=== PATIENT | male | born 1945 | race Caucasian/White ===

== ENCOUNTER 2020-01-20 07:27 | Emergency (ER) | payer MEDICARE ==
[~2020-01-20] VITALS: Ht 175.3 cm; Wt 133.4 kg
[2020-01-20] MEDS ORDERED: PRAM1TAB7 PO (07:43)
[2020-01-20] MEDS ORDERED: LISI10TA4 PO (07:43)
[2020-01-20] MEDS ORDERED: PANT40TA3 PO (07:43)
[2020-01-20] MEDS ORDERED: VITAMIN D (07:43)
[2020-01-20] MEDS ORDERED: GABAPENTIN 1600 MG (07:43)
[2020-01-20] MEDS ORDERED: ATEN25TA PO (07:43)
[2020-01-20] MEDS ORDERED: MELO15TA28 PO (07:43)
[2020-01-20] MEDS ORDERED: XALA0.007 OD (07:43)
[2020-01-20] MEDS ORDERED: SIMV20TA22 PO (07:43)
[2020-01-20] MEDS ORDERED: METF500T13 PO (07:43)
[2020-01-20] MEDS ORDERED: FINA5TAB2 PO (07:43)
[2020-01-20] MEDS ORDERED: IBUP200C25 PO (07:53)
[2020-01-20] MEDS ORDERED: ACETAMINOPHEN 325 MG TAB PO ONE (08:00)
[2020-01-20] MEDS ORDERED: NS 1,000 ML IV ONE ×3 (08:00→12:30)
[2020-01-20] MEDS ORDERED: ceFAZolin SOD 2 GM in IV 1 EA IV ONE (08:15)
[2020-01-20 08:30] LABS: BASO % 0.5 % (0.0-1.0); EOS # 0.1 10^3/uL (0.0-0.5); EOS % 0.7 % (0.0-3.0); HEMATOCRIT 46.6 % (42.0-52.0); HEMOGLOBIN 15.1 g/dl (13.5-17.5); LYMPH # 0.5 10^3/uL (1.5-5.0); LYMPH % 6.4 % (24.0-44.0); MEAN CORPUSCULAR HEMOGLOBIN 29.7 pg (27.0-33.0); MEAN CORPUSCULAR HGB CONC 32.4 g/dl (32.0-36.5); MEAN CORPUSCULAR VOLUME 91.7 fl (80.0-96.0); MONO # 0.3 10^3/uL (0.0-0.8); NEUTROPHILS # 7.3 10^3/uL (1.5-8.5); NEUTROPHILS % 87.7 % (36.0-66.0); PLATELET COUNT, AUTOMATED 139 10^3/uL (150-450); RED BLOOD COUNT 5.08 10^6/uL (4.30-6.10); WHITE BLOOD COUNT 8.3 10^3/uL (4.0-10.0)
[2020-01-20] MEDS ORDERED: MORPHINE 2 MG/ML 1ML VIAL (J2270) IV ONE (08:30)
[2020-01-20 08:49] LABS: C REACTIVE PROTEIN QUANTITATIV 1.51 MG/DL (0.00-0.30); CALCIUM LEVEL 8.9 MG/DL (8.8-10.2); CREATININE FOR GFR 1.36 MG/DL (0.70-1.30); GLOMERULAR FILTRATION RATE 54.7 (>42); POTASSIUM SERUM 4.3 MEQ/L (3.5-5.1); URIC ACID 4.9 MG/DL (3.5-7.2)
[2020-01-20 09:05] LABS: ERYTHROCYTE SEDIMENTATION RATE 5 mm/hr (0-20)
--- NOTE | 2020-01-20 09:48 | REP ---
REASON: Great toe pain. HISTORY: Diabetes. PRIORS: None. There are degenerative changes seen throughout the foot. Plantar and retrocalcaneal heel spurs are present. There is no evidence of an acute fracture. IMPRESSION: No acute abnormality noted. Electronically Signed by Jaylan Hickman DO 01/20/2020 04:01 P
[2020-01-20] MEDS ORDERED: KEFL500C17 PO (09:54)
[2020-01-20 14:39] VITALS: BP 110/64
[2020-01-20] MEDS ORDERED: VITA-144 PO (21:10)
[2020-01-20] MEDS ORDERED: GABA-845 PO (21:10)
[2020-01-20] MEDS ORDERED: CEPH500C PO (21:10)
== END 2020-01-20 15:02 | disposition home or self-care (01) ==
LOC: M ED 07:27
DX: L03.116 Cellulitis of left lower limb (principal); R50.9 Fever, unspecified; G62.9 Polyneuropathy, unspecified; E78.00 Pure hypercholesterolemia, unspecified; I10 Essential (primary) hypertension; G47.30 Sleep apnea, unspecified; N40.1 Benign prostatic hyperplasia with lower urinary tract symptoms; Z87.442 Personal history of urinary calculi; E11.9 Type 2 diabetes mellitus without complications; M19.90 Unspecified osteoarthritis, unspecified site; G25.81 Restless legs syndrome; Z79.899 Other long term (current) drug therapy; Z88.2 Allergy status to sulfonamides

== ENCOUNTER 2020-01-20 19:02 | Inpatient (IN) | payer MEDICARE ==
[~2020-01-20] VITALS: Ht 175.3 cm; Wt 137.2 kg
[~2020-01-20 19:02] MED LIST: ATEN25TA PO; FINA5TAB2 PO; GABAPENTIN 1600 MG; IBUP200C25 PO; KEFL500C17 PO; LISI10TA4 PO; MELO15TA28 PO; METF500T13 PO; PANT40TA3 PO; PRAM1TAB7 PO; SIMV20TA22 PO; VITAMIN D; XALA0.007 OD
[2020-01-20] MEDS ORDERED: IBUPROFEN 400 MG TAB PO ONE (19:30)
[2020-01-20 19:53] LABS: BASO % 0.6 % (0.0-1.0); EOS % 0.3 % (0.0-3.0); HEMATOCRIT 40.7 % (42.0-52.0); HEMOGLOBIN 13.2 g/dl (13.5-17.5); LYMPH # 0.3 10^3/uL (1.5-5.0); LYMPH % 5.1 % (24.0-44.0); MEAN CORPUSCULAR HEMOGLOBIN 29.9 pg (27.0-33.0); MEAN CORPUSCULAR HGB CONC 32.4 g/dl (32.0-36.5); MEAN CORPUSCULAR VOLUME 92.1 fl (80.0-96.0); MONO # 0.5 10^3/uL (0.0-0.8); MONO % 7.6 % (0.0-5.0); NEUTROPHILS # 5.5 10^3/uL (1.5-8.5); NEUTROPHILS % 85.8 % (36.0-66.0); PLATELET COUNT, AUTOMATED 125 10^3/uL (150-450); RED BLOOD COUNT 4.42 10^6/uL (4.30-6.10); WHITE BLOOD COUNT 6.4 10^3/uL (4.0-10.0)
[2020-01-20] MEDS ORDERED: NS 1,000 ML IV ONE (20:00)
[2020-01-20 20:13] LABS: ERYTHROCYTE SEDIMENTATION RATE 10 mm/hr (0-20)
--- NOTE | 2020-01-20 20:23 | REPVR ---
PROCEDURE INFORMATION: Exam: US Duplex Left Lower Extremity Veins, Limited Exam date and time: 01/20/2020 8:12 PM Age: 74 years old Clinical indication: Edema, localized; Lower extremity, left; Additional info: Redness, swelling R/O dvt TECHNIQUE: Imaging protocol: Real-time Duplex ultrasound of the Left Lower Extremity with 2-D ulloa scale, color Doppler flow and spectral waveform analysis with image documentation. Limited exam focused on the left lower extremity veins. COMPARISON: No relevant prior studies available. FINDINGS: Left deep veins: Unremarkable. The common femoral, femoral, proximal profunda femoral and popliteal veins are patent without thrombus. Normal Doppler waveforms. Normal compressibility and/or augmentation response. Left superficial veins: Unremarkable. Saphenofemoral junction is patent without thrombus. Soft tissues: Unremarkable. IMPRESSION: No DVT of the left lower extremity. Electronically signed by: Rashid Lopez On 01/20/2020 20:22:57 PM
[2020-01-20 20:24] LABS: C REACTIVE PROTEIN QUANTITATIV 6.85 MG/DL (0.00-0.30); CALCIUM LEVEL 8.3 MG/DL (8.8-10.2); CREATININE FOR GFR 1.54 MG/DL (0.70-1.30); GLOMERULAR FILTRATION RATE 47.4 (>42); POTASSIUM SERUM 4.4 MEQ/L (3.5-5.1)
[2020-01-20] MEDS: HumaLOG INSULIN (NovoLOG) PER UNIT SC SCH (21:00)
[2020-01-20] MEDS ORDERED: DEXTROSE 50% 50 ML SYRINGE IV PRN (21:00)
[2020-01-20] MEDS ORDERED: MOM 30ML SUSPENSION UDC PO PRN (21:00)
[2020-01-20] MEDS ORDERED: GLUCOSE 4GM CHEW TABLET PO PRN (21:00)
[2020-01-20] MEDS ORDERED: GLUCAGON INJ 1MG VIAL SC PRN (21:00)
[2020-01-20] MEDS ORDERED: MAALOX 30 ML SUSP *UDC PO PRN (21:00)
[2020-01-20] MEDS ORDERED: ACETAMINOPHEN TAB 650MG DOSE (2X325MG) PO PRN (21:00)
[2020-01-20] MEDS ORDERED: CEPH500C PO (21:10)
[2020-01-20] MEDS ORDERED: VITA-144 PO (21:10)
[2020-01-20] MEDS ORDERED: GABA-845 PO (21:10)
[2020-01-20] MEDS ORDERED: VANCOMYCIN HCL 1,000 MG, VIAL MATE ADAPTER 1 EACH in D5W 250 ML IV ONE ×2 (21:15→22:30)
[2020-01-20 21:38] LABS: HEMOGLOBIN A1c 8.2 %
[2020-01-20 22:00] VITALS: BP 116/55
--- NOTE | 2020-01-20 22:02 | HPEPDOC ---
[facility] Medical History & Physical Date of Admission Jan 20, 2020 Date of Service: Jan 20, 2020 Attending Physician: EUNICE RESTREPO MD History and Physical TIME OF SERVICE: 10:55 PM CHIEF COMPLAINT: Fever HISTORY OF PRESENT ILLNESS: This is a 74-year-old gentleman who came to the hospital earlier on today with complaints having fevers and chills. He also had left first toe and forefoot foot redness and swelling that began yesterday. He denied having any trauma to the foot. He also denied having any foot pain, but admitted to having diabetic neuropathy. He was diagnosed with left foot cellulitis and sent home with Keflex. Despite taking ibuprofen and Tylenol. He continued to have fevers theref ore he decided to come back to the hospital where evaluation. REVIEW OF SYSTEMS: negative except as listed in HPI PAST MEDICAL/ SURGICAL HISTORY: NIDDM with neuropathy Chronic HTN Dyslipidemia Hyperparathyroidism status post partial parathyroidectomy Nephrolithiasis Bilateral rotator cuff surgery Neck surgery to manage cervical spine impingement requiring Morbid obesity. ALIRIO on BiPAP BPH SOCIAL HISTORY: He doesn't smoke FAMILY HISTORY: n/a ALLERGIES: Please see below. HOME MEDICATIONS: Please see below. PHYSICAL EXAMINATION: Vital Signs Date Time Temp Pulse Resp B/P (MAP) Pulse Ox O2 Delivery O2 Flow Rate FiO2 01/20/20 19:04 102.0 85 20 103/53 (70) 92 Room Air GEN: well-nourished / well developed/ NAD INTEGUMENT: He is slightly flushed/ his left great toe on the dorsal aspect of his left foot are red and swollen HEENT: NCAT /mucus membranes moist and pink CVS: RRR/NMRG/ radial pulses difficult to palpate LUNGS: lungs are clear to auscultation bilaterally on room air MSK/EXTREMITIES: range of motion intact in all 4 extremities NEURO: CN 2-12 are grossly intact / speech is not dysarthric PSYCH: alert and oriented to person place and time/ able to understand and follow all commands LABORATORY DATA: Immature Granulocyte % (Auto) 0.6, Neutrophils (%) (Auto) 85.8H, Lymphocytes (%) (Auto) 5.1L, Monocytes (%) (Auto) 7.6H, Eosinophils (%) (Auto) 0.3, Basophils (%) (Auto) 0.6, Neutrophils # (Auto) 5.5, Lymphocytes # (Auto) 0.3L, Monocytes # (Auto) 0.5, Eosinophils # (Auto) 0.0, Basophils # (Auto) 0.0, Nucleated Red Blood Cells % (auto) 0.0, Erythrocyte Sedimentation Rate 10, Anion Gap 7L, Glomerular Filtration Rate 47.4, Estimated Mean Plasma Glucose 189H, Hemoglobin A1c 8.2, Lactic Acid Level 2.4*H, Calcium Level 8.3L, C-Reactive Protein, Quantitative 6.85H 01/20/20 21:39: Bedside Glucose (Misc Panel) 150H IMAGING: LLE US neg for DVT MICROBIOLOGY: Please see below. ASSESSMENT: December 74-year-old with a history of NIDDM, HTN, and dyslipidemia who is admitted for management of sepsis 2/2 left foot cellulitis. PLAN: 1. Sepsis 2/2 Left foot Cellulitis SIRS criteria include fever and tachypnea. He is not tachycardic, but I suspect this is masked due to atenolol. The WBC and ESR are within normal limits, but the CRP, and lactic acid are faustino vated Plan: Admit to PCU/fall precautions / elevate leg / f/u repeat lactic acid, blood cx / IV vancomycin for MSRA and IV cefazolin for MSSA/ c/w IV fluids / Acetaminophen PRN for fever / target MAP at least 65 to 70 mmHG / f/u Is and Os with target UOP of at least 0.5 ml/kg/H / target serum glucose 140-180 while acutely ill 2. Hypotension likely due to infection Despite receiving 3 L of IV fluids earlier on today his initial blood pressure was 97/50. He doesn't yet meet the criteria for septic shock because based on his weight he should have a MAP <65 after receiving at least 4 L of IVF Plan: Check orthostatics/continue with 4th L IV fluids/monitor urine output / hold atenolol and lisinopril 3. NIDDM w neuropathy Plan: diabetic diet / f/u accuchecks & A1C / hypoglycemia protocol / sliding scale insulin / hold oral anti-glycemics 4. Mild Renal Impairment This is likely multifactorial due to infection, ibuprofen, meloxicam & lisinopril, His Cr has increased but to the level where we can officially diagnose him with SOPHY. His GFR has dropped from 54 down to 47 in less than 24 hours Plan: hold Ibuprofen, meloxicam, metformin & lisinopril / f/u BMP in the AM 5. ALIRIO Plan: he can use his own BiPAP 6. BPH Plan: Finasteride 7. 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 consult & referral to Bariatric Surgeon / recommend cardiovascular exercise for 40 min 4-5 days a week DVT PROPHYLAXIS: Lovenox DISPOSITION: Likely home after more than 2 midnight's stay Home Medications Scheduled Atenolol (Atenolol) 25 Mg Tablet, 25 MG PO DAILY Cephalexin (Cephalexin) 500 Mg Capsule, 500 MG PO QID Cholecalciferol (Vitamin D3) (Vitamin D3) 25 Mcg Tablet, 1,000 UNITS PO DAILY Finasteride (Finasteride) 5 Mg Tablet, 5 MG PO DAILY Gabapentin (Gabapentin) 400 Mg Capsule, 1,600 MG PO BID Latanoprost (Xalatan) 0.005% 2.5ML Drops, 1 DROP OD QPM Lisinopril (Lisinopril) 10 Mg Tablet, 10 MG PO DAILY Meloxicam (Meloxicam) 15 Mg Tablet, 15 MG PO DAILY Metformin HCl (Metformin HCl) 500 Mg Tablet, 500 MG PO DAILY Pantoprazole Sodium (Pantoprazole Sodium) 40 Mg Tablet.dr, 40 MG PO DAILY Pramipexole Di-HCl (Pramipexole Dihydrochloride) 1 Mg Tablet, 1 MG PO QPM Simvastatin (Simvastatin) 20 Mg Tablet, 20 MG PO QPM Scheduled PRN Ibuprofen (Ibuprofen) 200 Mg Capsule, 400 MG PO Q8HP PRN for PAIN Allergies Coded Allergies: Sulfa (Sulfonamide Antibiotics) (Verified Allergy, Intermediate, joints swell and ache, 01/20/20) A-FIB/CHADSVASC A-FIB History Current/History of A-Fib/PAF?: No Current PO Anticoag Therapy: EUNICE Cardoso MD Jan 20, 2020 22:02
[2020-01-20 22:49] VITALS: BP 116/55
[2020-01-20] MEDS ORDERED: SLF 3 ML SYR IV PRN (23:30)
[2020-01-21] MEDS ORDERED: ceFAZolin SOD 1 GM in D5W MINI-BAG PLUS 50 ML IV SCH ×2
[2020-01-21] MEDS: VANCOMYCIN HCL 1,000 MG, VIAL MATE ADAPTER 1 EACH in D5W 250 ML IV SCH ×3 (01:17→18:14)
[2020-01-21 04:00] VITALS: BP 118/67
[2020-01-21 05:29] LABS: HEMATOCRIT 41.2 % (42.0-52.0); HEMOGLOBIN 13.5 g/dl (13.5-17.5); MEAN CORPUSCULAR HEMOGLOBIN 30.3 pg (27.0-33.0); MEAN CORPUSCULAR HGB CONC 32.8 g/dl (32.0-36.5); MEAN CORPUSCULAR VOLUME 92.6 fl (80.0-96.0); PLATELET COUNT, AUTOMATED 105 10^3/uL (150-450); RED BLOOD COUNT 4.45 10^6/uL (4.30-6.10); WHITE BLOOD COUNT 4.5 10^3/uL (4.0-10.0)
[2020-01-21 05:39] LABS: BLOOD UREA NITROGEN 16 MG/DL (7-18); CALCIUM LEVEL 8.1 MG/DL (8.8-10.2); CARBON DIOXIDE LEVEL 25 MEQ/L (21-32); CHLORIDE LEVEL 108 MEQ/L (98-107); CREATININE FOR GFR 1.24 MG/DL (0.70-1.30); GLOMERULAR FILTRATION RATE > 60.0 (>42); GLUCOSE, FASTING 141 MG/DL (70-100); MAGNESIUM LEVEL 1.7 MG/DL (1.8-2.4); POTASSIUM SERUM 3.8 MEQ/L (3.5-5.1); SODIUM LEVEL 141 MEQ/L (136-145)
[2020-01-21] MEDS: SLF 3 ML SYR IV SCH ×3 (05:45→19:56)
[2020-01-21 08:00] VITALS: BP 122/80
[2020-01-21] MEDS ORDERED: PREVNAR 13 VACCINE SYRINGE (CPT CODE:90670) IM ONE (09:00)
[2020-01-21] MEDS: FINASTERIDE 5 MG TAB PO SCH (09:24)
[2020-01-21] MEDS: GABAPENTIN 400 MG CAP PO SCH ×2 (09:25→19:56)
[2020-01-21] MEDS: HumaLOG INSULIN (NovoLOG) PER UNIT SC SCH ×4 (09:26→19:56)
[2020-01-21] MEDS ORDERED: MAGNESIUM OXIDE 400 MG TAB (MAG-OX) PO ONE (11:45)
[2020-01-21 12:00] VITALS: BP 123/60
[2020-01-21 16:00] VITALS: BP 165/73
--- NOTE | 2020-01-21 16:38 | IPNPDOC ---
Date Seen The patient was seen on 01/21/20. Progress Note SUBJECTIVE: Decreased redness and pain of the left foot, erythema/swelling has not increased from when foot marked earlier in admission. Pain still 6/10 on pain scale, warm to touch. WBC wnl, stopped cefazolin. Denies fevers, chills, n/v/d. OBJECTIVE: VITAL SIGNS: Please see below PHYSICAL EXAMINATION: GEN: well-nourished / well developed/ NAD INTEGUMENT: left great toe on the dorsal aspect of his left foot are red and swollen, well healed/scabbed lesion on the medial part of left great toe where prior injury was HEENT: NCAT /mucus membranes moist and pink CVS: RRR/NMRG/ radial pulses difficult to palpate LUNGS: lungs are clear to auscultation bilaterally on room air MSK/EXTREMITIES: range of motion intact in all 4 extremities NEURO: CN 2-12 are grossly intact / speech is not dysarthric PSYCH: alert and oriented to person place and time/ able to understand and follow all commands CURRENT MEDICATIONS: Please see below LABORATORY DATA: Please see below IMAGING: No new imaging ASSESSMENT: 74-year-old M admitted for management of left foot cellulitis, resolved sepsis. PLAN: 1. Left foot cellulitis, resolved sepsis. WBC wnl, afebrile; however, cellulitis still present, tender to touch, warm. CRP elevated, lactic acid wnl. Stopped cefazolin, c/w Vancomycin as there was an open wound on medial part of large toe that healed almost 1 week ago. Fall precautions. C/w PT/OT, daily labs, tylenol PRN for pain. 2. Hypotension likely 2/2 to dehydration, sepsis. Resolved. Holding resuming home antihypertensive medications. IVF stopped. 3. NIDDM w/ neuropathy. BS 140-190. HbA1c 8.2, holding PO metformin. C/w consistent carb diet, AC/HS blood sugar checks, ISS. 4. Acute kidney injury. Resolved. Cr wnl and normalized with IVFs. Was on multiple nephrotoxic meds at home, holding all of these at this time. F/u daily labs. 5. ALIRIO. Stable. Can use his own BiPAP 6. BPH. C/w finasteride 7. Morbid Obesity. BMI 43.8 , coexisting diabetes and ALIRIO, complicates care since his BMI >35 and he has DM he is a candidate for bariatric surgery. C/w treatment above, f/u with PCP. 8. DVT PROPHYLAXIS: Lovenox DISPOSITION: Currently inpatient status. Plan is discharge home when medically improved. PT/OT. VS, I&O, 24H, Abraham Vital Signs/I&O Vital Signs Date Time Temp Pulse Resp B/P (MAP) Pulse Ox O2 Delivery O2 Flow Rate FiO2 01/21/20 12:00 98.5 78 21 123/60 (81) 95 Room Air I&O- Last 24 Hours up to 6 AM 01/21/20 06:00 Intake Total 1510 ml Output Total 700 ml Balance 810 ml Laboratory Data 24H LABS Laboratory Tests 2 01/20/20 19:42: Immature Granulocyte % (Auto) 0.6, Neutrophils (%) (Auto) 85.8H, Lymphocytes (%) (Auto) 5.1L, Monocytes (%) (Auto) 7.6H, Eosinophils (%) (Auto) 0.3, Basophils (%) (Auto) 0.6, Neutrophils # (Auto) 5.5, Lymphocytes # (Auto) 0.3L, Monocytes # (Auto) 0.5, Eosinophils # (Auto) 0.0, Basophils # (Auto) 0.0, Nucleated Red Blood Cells % (auto) 0.0, Erythrocyte Sedimentation Rate 10, Anion Gap 7L, Glomerular Filtration Rate 47.4, Estimated Mean Plasma Glucose 189H, Hemoglobin A1c 8.2, Lactic Acid Level 2.4*H, Calcium Level 8.3L, C-Reactive Protein, Quantitative 6.85H 01/20/20 21:39: Bedside Glucose (Misc Panel) 150H 01/20/20 23:34: Lactic Acid Level 1.3 01/21/20 04:51: Nucleated Red Blood Cells % (auto) 0.0, Anion Gap 8, Glomerular Filtration Rate > 60.0, Calcium Level 8.1L, Magnesium Level 1.7L 01/21/20 07:43: KD-Ngy-H-Type Natriuretic Peptide 698H 01/21/20 11:47: Bedside Glucose (Misc Panel) 194H 01/21/20 15:52: CBC/BMP Laboratory Tests 01/20/20 19:42 01/21/20 04:51 Microbiology Microbiology 01/21/20 Blood Culture, Received Pending 01/21/20 Blood Culture, Received Pending 01/20/20 Blood Culture, Received Pending Current Medications Current Medications Medications (Trade) Dose Ordered Sig/Liset Route PRN Reason Start Time Stop Time Status Last Admin Dose Admin Acetaminophen (Tylenol Tab) 650 mg Q4H PRN PO PAIN OR FEVER 01/20/20 21:00 Al Hydrox/Mg Hydrox/Simethicone (Mylanta) 30 ml DAILY PRN PO DYSPEPSIA 01/20/20 21:00 Cefazolin Sodium 1 gm/Dextrose 50 ml @ 100 mls/hr Q8H IV 01/21/20 00:00 01/21/20 07:34 DC 01/20/20 23:09 Dextrose (Dextrose 50%) 25 ml ASDIRECTED PRN IV SEE LABEL COMMENTS 01/20/20 21:00 Finasteride (Proscar) 5 mg DAILY PO 01/21/20 09:00 01/21/20 09:24 Gabapentin (Neurontin) 1,600 mg BID PO 01/21/20 09:00 01/21/20 09:25 Glucagon (Glucagon) 1 mg ASDIRECTED PRN SC SEE LABEL COMMENTS 01/20/20 21:00 Glucose (Glucose) 16 GM ASDIRECTED PRN PO SEE LABEL COMMENTS 01/20/20 21:00 Home Med (Med Rec Complete!) ASDIRECTED XX 01/20/20 21:15 01/20/20 21:12 DC Insulin Human Lispro (HumaLOG INSULIN) See Protocol Table AC SC 01/21/20 07:30 01/21/20 12:39 Insulin Human Lispro (HumaLOG INSULIN) See Protocol Table QHS SC 01/20/20 21:00 Latanoprost (Xalatan 0.005% Op Soln) 1 drop QPM OD 01/21/20 21:00 Magnesium Hydroxide (Milk Of Magnesia) 30 ml DAILY PRN PO CONSTIPATION 01/20/20 21:00 Pramipexole Dihydrochloride (Mirapex) 1 mg QPM@1800 PO 01/21/20 18:00 Simvastatin (Zocor) 20 mg QPM@1800 PO 01/21/20 18:00 Sodium Chloride (Saline Lock Flush) 2 ml ASDIRECTED PRN IV SEE LABEL COMMENTS 01/20/20 23:30 Sodium Chloride (Saline Lock Flush) 2 ml SLF IV 01/21/20 06:00 01/21/20 05:45 Vancomycin HCl 1000 mg/IV Miscellaneous Supplies 1 each/ Dextrose 270 ml @ 270 mls/hr Q8H IV 01/21/20 01:00 01/21/20 09:25 Allergies Coded Allergies: Sulfa (Sulfonamide Antibiotics) (Verified Allergy, Intermediate, joints swell and ache, 01/20/20) Linda Ace MD Jan 21, 2020 16:38
[2020-01-21] MEDS: SIMVASTATIN 20 MG TAB PO SCH (18:13)
[2020-01-21] MEDS: PRAMIPEXOLE 1 MG TAB PO SCH (18:14)
[2020-01-21] MEDS: LATANOPROST 0.005% OPHTH SOLN 2.5 ML OD SCH (19:56)
[2020-01-21 20:00] VITALS: BP 142/89
[2020-01-22] VITALS (7 sets, daily range): BP systolic 96–152; BP diastolic 59–76
[2020-01-22] MEDS: VANCOMYCIN HCL 1,000 MG, VIAL MATE ADAPTER 1 EACH in D5W 250 ML IV SCH ×3 (00:30→17:12)
[2020-01-22] MEDS: SLF 3 ML SYR IV SCH ×3 (05:08→21:00)
[2020-01-22 05:12] LABS: HEMATOCRIT 43.7 % (42.0-52.0); HEMOGLOBIN 14.3 g/dl (13.5-17.5); MEAN CORPUSCULAR HEMOGLOBIN 29.7 pg (27.0-33.0); MEAN CORPUSCULAR HGB CONC 32.7 g/dl (32.0-36.5); MEAN CORPUSCULAR VOLUME 90.9 fl (80.0-96.0); PLATELET COUNT, AUTOMATED 105 10^3/uL (150-450); RED BLOOD COUNT 4.81 10^6/uL (4.30-6.10); WHITE BLOOD COUNT 5.8 10^3/uL (4.0-10.0)
[2020-01-22 05:29] LABS: BLOOD UREA NITROGEN 13 MG/DL (7-18); CALCIUM LEVEL 8.1 MG/DL (8.8-10.2); CARBON DIOXIDE LEVEL 27 MEQ/L (21-32); CHLORIDE LEVEL 105 MEQ/L (98-107); CHOLESTEROL LEVEL 124 MG/DL (<200); CHOLESTEROL RISK RATIO 5.636 (<5); CREATININE FOR GFR 1.16 MG/DL (0.70-1.30); GLOMERULAR FILTRATION RATE > 60.0 (>42); GLUCOSE, FASTING 168 MG/DL (70-100); HDL CHOLESTEROL 22 MG/DL (>40); LDL CHOLESTEROL 60 MG/DL (<100); NON-HDL-C 102 MG/DL; POTASSIUM SERUM 3.6 MEQ/L (3.5-5.1); SODIUM LEVEL 140 MEQ/L (136-145); TRIGLYCERIDES LEVEL 209 MG/DL (<150)
[2020-01-22] MEDS: FINASTERIDE 5 MG TAB PO SCH (08:38)
[2020-01-22] MEDS: HumaLOG INSULIN (NovoLOG) PER UNIT SC SCH ×4 (08:38→20:58)
[2020-01-22] MEDS: GABAPENTIN 400 MG CAP PO SCH ×2 (08:38→20:59)
[2020-01-22] MEDS ORDERED: LEVEMIR (INSULIN DETEMIR) 1 UNITS/0.01ML SC STA (09:24)
--- NOTE | 2020-01-22 11:16 | IPNPDOC ---
Date Seen The patient was seen on 01/22/20. Progress Note SUBJECTIVE: Slightly improved redness with decreased pain on palpation of left foot. Ambulated down the [place] today with PT, states pain with ambulation also slightly improved. Denies fevers, chills, n/v/d. OBJECTIVE: VITAL SIGNS: Please see below PHYSICAL EXAMINATION: GEN: well-nourished / well developed/ NAD INTEGUMENT: left great toe on the dorsal aspect of his left foot are red and swollen, decreased swelling. well healed/scabbed lesion on the medial part of left great toe where prior injury was HEENT: NCAT /mucus membranes moist and pink CVS: RRR/NMRG/ radial pulses difficult to palpate LUNGS: lungs are clear to auscultation bilaterally on room air MSK/EXTREMITIES: range of motion intact in all 4 extremities NEURO: CN 2-12 are grossly intact / speech is not dysarthric PSYCH: alert and oriented to person place and time/ able to understand and follow all commands CURRENT MEDICATIONS: Please see below LABORATORY DATA: Please see below IMAGING: No new imaging ASSESSMENT: 74-year-old M admitted for management of left foot cellulitis. PLAN: 1. Left foot cellulitis. Continued pain with ambulation, slightly improved erythema and tenderness. Would benefit from continued IV abx for 1-2 more days before discharge. C/w Vancomycin, fall precautions. C/w PT/OT, daily labs, tylenol PRN for pain. 2. HTN. Resuming home meds. 3. NIDDM w/ neuropathy. BS 150-190. HbA1c 8.2. Started on levemir 8 U SC, consistent carb diet, AC/HS blood sugar checks, ISS. 4. ALIRIO. Stable. Can use his own BiPAP 5. BPH. C/w finasteride 6. Morbid Obesity. BMI 43.8. C/w treatment above, f/u with PCP. 7. DVT PROPHYLAXIS: Lovenox DISPOSITION: Currently inpatient status, will likely need 1-2 more days of IV abx if continues to improve. Plan is discharge home when medically improved. PT/OT. VS, I&O, 24H, Fishbone Vital Signs/I&O Vital Signs Date Time Temp Pulse Resp B/P (MAP) Pulse Ox O2 Delivery O2 Flow Rate FiO2 01/22/20 08:00 97.2 72 20 149/76 (100) 97 Room Air I&O- Last 24 Hours up to 6 AM 01/22/20 06:00 Intake Total 2100 ml Output Total 275 ml Balance 1825 ml Laboratory Data 24H LABS Laboratory Tests 2 01/21/20 11:47: Bedside Glucose (Misc Panel) 194H 01/21/20 15:52: Vancomycin Level Trough 12.4 01/21/20 17:31: Bedside Glucose (Misc Panel) 186H 01/21/20 19:51: Bedside Glucose (Misc Panel) 181H 01/22/20 04:35: Nucleated Red Blood Cells % (auto) 0.0, Anion Gap 8, Glomerular Filtration Rate > 60.0, Calcium Level 8.1L, Magnesium Level 2.0, Triglycerides Level 209H, Total Cholesterol 124, LDL Cholesterol 60, Non-HDL Cholesterol (LDL + VLDL) 102, Total HDL Cholesterol 22L, Cholesterol/HDL Ratio 5.636H CBC/BMP Laboratory Tests 01/22/20 04:35 Microbiology Microbiology 01/21/20 Blood Culture - Preliminary, Resulted No growth after 24 hours . All specim... 01/21/20 Blood Culture - Preliminary, Resulted No growth after 24 hours . All specim... 01/20/20 Blood Culture - Preliminary, Resulted No growth after 24 hours . All specim... Current Medications Current Medications Medications (Trade) Dose Ordered Sig/Liset Route PRN Reason Start Time Stop Time Status Last Admin Dose Admin Acetaminophen (Tylenol Tab) 650 mg Q4H PRN PO PAIN OR FEVER 01/20/20 21:00 Al Hydrox/Mg Hydrox/Simethicone (Mylanta) 30 ml DAILY PRN PO DYSPEPSIA 01/20/20 21:00 Cefazolin Sodium 1 gm/Dextrose 50 ml @ 100 mls/hr Q8H IV 01/21/20 00:00 01/21/20 07:34 DC 01/20/20 23:09 Dextrose (Dextrose 50%) 25 ml ASDIRECTED PRN IV SEE LABEL COMMENTS 01/20/20 21:00 Finasteride (Proscar) 5 mg DAILY PO 01/21/20 09:00 01/22/20 08:38 Gabapentin (Neurontin) 1,600 mg BID PO 01/21/20 09:00 01/22/20 08:38 Glucagon (Glucagon) 1 mg ASDIRECTED PRN SC SEE LABEL COMMENTS 01/20/20 21:00 Glucose (Glucose) 16 GM ASDIRECTED PRN PO SEE LABEL COMMENTS 01/20/20 21:00 Home Med (Med Rec Complete!) ASDIRECTED XX 01/20/20 21:15 01/20/20 21:12 DC Insulin Detemir (Levemir Insulin) 8 units QAM SC 01/23/20 09:00 Insulin Detemir (Levemir Insulin) 8 units STAT STAT SC 01/22/20 09:24 01/22/20 09:28 DC 01/22/20 09:47 Insulin Human Lispro (HumaLOG INSULIN) See Protocol Table AC SC 01/21/20 07:30 01/22/20 08:38 Insulin Human Lispro (HumaLOG INSULIN) See Protocol Table QHS SC 01/20/20 21:00 Latanoprost (Xalatan 0.005% Op Soln) 1 drop QPM OD 01/21/20 21:00 01/21/20 19:56 Magnesium Hydroxide (Milk Of Magnesia) 30 ml DAILY PRN PO CONSTIPATION 01/20/20 21:00 Pramipexole Dihydrochloride (Mirapex) 1 mg QPM@1800 PO 01/21/20 18:00 01/21/20 18:14 Simvastatin (Zocor) 20 mg QPM@1800 PO 01/21/20 18:00 01/21/20 18:13 Sodium Chloride (Saline Lock Flush) 2 ml ASDIRECTED PRN IV SEE LABEL COMMENTS 01/20/20 23:30 Sodium Chloride (Saline Lock Flush) 2 ml SLF IV 01/21/20 06:00 01/22/20 05:08 Vancomycin HCl 1000 mg/IV Miscellaneous Supplies 1 each/ Dextrose 270 ml @ 270 mls/hr Q8H IV 01/21/20 01:00 01/22/20 08:38 Allergies Coded Allergies: Sulfa (Sulfonamide Antibiotics) (Verified Allergy, Intermediate, joints swell and ache, 01/20/20) Linda Ace MD Jan 22, 2020 11:16
[2020-01-22] MEDS: atenoloL 25 MG TAB PO SCH (11:54)
[2020-01-22] MEDS: lisinopriL 10 MG TAB PO SCH (11:54)
[2020-01-22] MEDS: PRAMIPEXOLE 1 MG TAB PO SCH (17:13)
[2020-01-22] MEDS: SIMVASTATIN 20 MG TAB PO SCH (17:13)
[2020-01-22] MEDS: LATANOPROST 0.005% OPHTH SOLN 2.5 ML OD SCH (21:00)
[2020-01-23] VITALS: BP 127/79
[2020-01-23] MEDS: VANCOMYCIN HCL 1,000 MG, VIAL MATE ADAPTER 1 EACH in D5W 250 ML IV SCH ×3 (01:26→17:11)
[2020-01-23 04:00] VITALS: BP 115/70
[2020-01-23] MEDS: SLF 3 ML SYR IV SCH ×3 (05:25→20:04)
[2020-01-23 05:45] LABS: HEMATOCRIT 42.3 % (42.0-52.0); HEMOGLOBIN 13.8 g/dl (13.5-17.5); MEAN CORPUSCULAR HEMOGLOBIN 29.8 pg (27.0-33.0); MEAN CORPUSCULAR HGB CONC 32.6 g/dl (32.0-36.5); MEAN CORPUSCULAR VOLUME 91.4 fl (80.0-96.0); PLATELET COUNT, AUTOMATED 113 10^3/uL (150-450); RED BLOOD COUNT 4.63 10^6/uL (4.30-6.10); WHITE BLOOD COUNT 5.2 10^3/uL (4.0-10.0)
[2020-01-23 05:58] LABS: BLOOD UREA NITROGEN 16 MG/DL (7-18); CALCIUM LEVEL 8.1 MG/DL (8.8-10.2); CARBON DIOXIDE LEVEL 27 MEQ/L (21-32); CHLORIDE LEVEL 106 MEQ/L (98-107); CREATININE FOR GFR 1.09 MG/DL (0.70-1.30); GLOMERULAR FILTRATION RATE > 60.0 (>42); GLUCOSE, FASTING 180 MG/DL (70-100); POTASSIUM SERUM 3.8 MEQ/L (3.5-5.1); SODIUM LEVEL 141 MEQ/L (136-145)
[2020-01-23 08:00] VITALS: BP 118/83
[2020-01-23] MEDS: FINASTERIDE 5 MG TAB PO SCH (08:26)
[2020-01-23] MEDS: GABAPENTIN 400 MG CAP PO SCH ×2 (08:26→20:03)
[2020-01-23] MEDS: HumaLOG INSULIN (NovoLOG) PER UNIT SC SCH ×4 (08:26→20:04)
[2020-01-23] MEDS: atenoloL 25 MG TAB PO SCH (08:27)
[2020-01-23] MEDS: lisinopriL 10 MG TAB PO SCH (08:28)
[2020-01-23] MEDS ORDERED: LEVEMIR (INSULIN DETEMIR) 1 UNITS/0.01ML SC SCH (09:00)
[2020-01-23 10:55] LABS: VANCOMYCIN RANDOM 20.5 UG/ML
[2020-01-23 12:00] VITALS: BP 103/61
[2020-01-23] MEDS: SIMVASTATIN 20 MG TAB PO SCH (17:11)
[2020-01-23] MEDS: PRAMIPEXOLE 1 MG TAB PO SCH (17:11)
--- NOTE | 2020-01-23 19:00 | IPNPDOC ---
Date Seen The patient was seen on 01/23/20. Progress Note SUBJECTIVE: Further improved redness, warmth. Pain is almost completely gone with walking. There is a hematoma that has developed under left large toe. Podiatry consulted to give suggestions. Will likely only need one more day of IV vancomycin and hope for home in AM. F/u recommendations. Denies fevers, chills, n/v/d. OBJECTIVE: VITAL SIGNS: Please see below PHYSICAL EXAMINATION: GEN: well-nourished / well developed/ NAD INTEGUMENT: left great toe on the dorsal aspect of his left foot with decreased redness and swelling; however, new hematoma under base of large toe on left. well healed/scabbed lesion on the medial part of left great toe where prior injury was HEENT: NCAT /mucus membranes moist and pink CVS: RRR/NMRG/ radial pulses difficult to palpate LUNGS: lungs are clear to auscultation bilaterally on room air MSK/EXTREMITIES: range of motion intact in all 4 extremities NEURO: CN 2-12 are grossly intact / speech is not dysarthric PSYCH: alert and oriented to person place and time/ able to understand and follow all commands CURRENT MEDICATIONS: Please see below LABORATORY DATA: Please see below IMAGING: No new imaging ASSESSMENT: 74-year-old M admitted for management of left foot cellulitis. PLAN: 1. Left foot cellulitis. Improving slowly. Mild pain with ambulation, slightly improved erythema. Podiatry consulted to give recommendations. Would benefit from continued IV abx for 1 more days before discharge. C/w Vancomycin, fall precautions. C/w PT/OT, daily labs, tylenol PRN for pain. 2. HTN. Resuming home meds. 3. NIDDM w/ neuropathy. BS 190-200. HbA1c 8.2. Increased levemir to 15 U SC, consistent carb diet, AC/HS blood sugar checks, ISS. 4. ALIRIO. Stable. Can use his own BiPAP 5. BPH. C/w finasteride 6. Morbid Obesity. BMI 43.8. C/w treatment above, f/u with PCP. 7. DVT PROPHYLAXIS: Lovenox DISPOSITION: Currently inpatient status, will likely need 1 more days of IV abx if continues to improve. Podiatry to see tonight. Plan is discharge home when medically improved. PT/OT. VS, I&O, 24H, Fishbone Vital Signs/I&O Vital Signs Date Time Temp Pulse Resp B/P (MAP) Pulse Ox O2 Delivery O2 Flow Rate FiO2 01/23/20 12:00 97.4 58 16 103/61 (75) 97 Room Air I&O- Last 24 Hours up to 6 AM 01/23/20 06:00 Intake Total 2040 ml Output Total 0 ml Balance 2040 ml Laboratory Data 24H LABS Laboratory Tests 2 01/22/20 19:54: Bedside Glucose (Misc Panel) 172H 01/23/20 05:18: Nucleated Red Blood Cells % (auto) 0.0, Anion Gap 8, Glomerular Filtration Rate > 60.0, Calcium Level 8.1L, Random Vancomycin Level 20.5 01/23/20 11:27: Bedside Glucose (Misc Panel) 193H 01/23/20 17:04: Bedside Glucose (Misc Panel) 183H CBC/BMP Laboratory Tests 01/23/20 05:18 Microbiology Microbiology 01/21/20 Blood Culture - Preliminary, Resulted No Growth after 48 hours. All Specime... 01/21/20 Blood Culture - Preliminary, Resulted No Growth after 48 hours. All Specime... 01/20/20 Blood Culture - Preliminary, Resulted No Growth after 48 hours. All Specime... Current Medications Current Medications Medications (Trade) Dose Ordered Sig/Liset Route PRN Reason Start Time Stop Time Status Last Admin Dose Admin Acetaminophen (Tylenol Tab) 650 mg Q4H PRN PO PAIN OR FEVER 01/20/20 21:00 Al Hydrox/Mg Hydrox/Simethicone (Mylanta) 30 ml DAILY PRN PO DYSPEPSIA 01/20/20 21:00 Atenolol (Tenormin) 25 mg DAILY PO 01/22/20 09:00 01/23/20 08:27 Cefazolin Sodium 1 gm/Dextrose 50 ml @ 100 mls/hr Q8H IV 01/21/20 00:00 01/21/20 07:34 DC 01/20/20 23:09 Dextrose (Dextrose 50%) 25 ml ASDIRECTED PRN IV SEE LABEL COMMENTS 01/20/20 21:00 Finasteride (Proscar) 5 mg DAILY PO 01/21/20 09:00 01/23/20 08:26 Gabapentin (Neurontin) 1,600 mg BID PO 01/21/20 09:00 01/23/20 08:26 Glucagon (Glucagon) 1 mg ASDIRECTED PRN SC SEE LABEL COMMENTS 01/20/20 21:00 Glucose (Glucose) 16 GM ASDIRECTED PRN PO SEE LABEL COMMENTS 01/20/20 21:00 Home Med (Med Rec Complete!) ASDIRECTED XX 01/20/20 21:15 01/20/20 21:12 DC Insulin Detemir (Levemir Insulin) 8 units QAM SC 01/23/20 09:00 01/23/20 08:27 Insulin Detemir (Levemir Insulin) 8 units STAT STAT SC 01/22/20 09:24 01/22/20 09:28 DC 01/22/20 09:47 Insulin Human Lispro (HumaLOG INSULIN) See Protocol Table AC SC 01/21/20 07:30 01/23/20 17:11 Insulin Human Lispro (HumaLOG INSULIN) See Protocol Table QHS SC 01/20/20 21:00 Latanoprost (Xalatan 0.005% Op Soln) 1 drop QPM OD 01/21/20 21:00 01/22/20 21:00 Lisinopril (Prinivil) 10 mg DAILY PO 01/22/20 09:00 01/23/20 08:28 Magnesium Hydroxide (Milk Of Magnesia) 30 ml DAILY PRN PO CONSTIPATION 01/20/20 21:00 Pramipexole Dihydrochloride (Mirapex) 1 mg QPM@1800 PO 01/21/20 18:00 01/23/20 17:11 Simvastatin (Zocor) 20 mg QPM@1800 PO 01/21/20 18:00 01/23/20 17:11 Sodium Chloride (Saline Lock Flush) 2 ml ASDIRECTED PRN IV SEE LABEL COMMENTS 01/20/20 23:30 Sodium Chloride (Saline Lock Flush) 2 ml SLF IV 01/21/20 06:00 01/23/20 13:02 Vancomycin HCl 1000 mg/IV Miscellaneous Supplies 1 each/ Dextrose 270 ml @ 270 mls/hr Q8H IV 01/21/20 01:00 01/23/20 17:11 Allergies Coded Allergies: Sulfa (Sulfonamide Antibiotics) (Verified Allergy, Intermediate, joints swell and ache, 01/20/20) Linda Ace MD Jan 23, 2020:00
[2020-01-23 20:00] VITALS: BP 138/67
[2020-01-23] MEDS: LATANOPROST 0.005% OPHTH SOLN 2.5 ML OD SCH (20:04)
--- NOTE | 2020-01-23 21:45 | CR ---
DATE: 01/23/2020 CHIEF COMPLAINT: Patient seen for evaluation of infection in his left foot. The patient states he initially had a cut on his left big toe. This subsequently healed and then he had a thick callus form on his toe, subsequently erythema on the dorsal aspect of his foot. He states he had fever and swelling of his left foot and presented for admission. PAST MEDICAL HISTORY: Positive for [id number] diabetes mellitus with neuropathy, chronic hypertension, dyslipidemia, hyperparathyroid, and osteoarthritis. PAST SURGICAL HISTORY: Positive for parathyroidectomy, nephrolithiasis, bilateral rotator cuff repair, neck surgery for cervical spine impingement. PHYSICAL EXAM: Reveals an alert, well oriented 74-year-old male, in no acute distress. Erythema is noted on the dorsal aspect of the foot extending from the big toe and then dorsally and laterally across the foot, ending in the midfoot. There is a hyperkeratotic lesion present inferior to the 1st metatarsal and plantar hallux. This hyperkeratotic lesion was debrided, after appropriate time out, excisional debridement to the subcutaneous tissue. The deep tissue was cultured and sent to microbacteriology. The patient's ulcer after debridement measures 0.3 cm x 0.7 cm x 0.1 cm in depth. A dry sterile dressing was applied. The patient's questions were answered. We discussed with the patient if this culture reveals growth, would recommend being discharged on an oral antibiotic that covers this bacteria. We discussed not getting his foot wet when showering, utilizing a shower bag, local wound care consisting of Neosporin and a dressing.
[2020-01-24] VITALS: BP 119/60
[2020-01-24] MEDS: VANCOMYCIN HCL 1,000 MG, VIAL MATE ADAPTER 1 EACH in D5W 250 ML IV SCH ×2 (00:21→08:32)
[2020-01-24 04:00] VITALS: BP 148/69
[2020-01-24] MEDS: SLF 3 ML SYR IV SCH (04:46)
[2020-01-24 05:27] LABS: HEMATOCRIT 42.2 % (42.0-52.0); HEMOGLOBIN 14.1 g/dl (13.5-17.5); MEAN CORPUSCULAR HEMOGLOBIN 30.7 pg (27.0-33.0); MEAN CORPUSCULAR HGB CONC 33.4 g/dl (32.0-36.5); MEAN CORPUSCULAR VOLUME 91.9 fl (80.0-96.0); PLATELET COUNT, AUTOMATED 141 10^3/uL (150-450); RED BLOOD COUNT 4.59 10^6/uL (4.30-6.10); WHITE BLOOD COUNT 5.8 10^3/uL (4.0-10.0)
[2020-01-24 05:49] LABS: BLOOD UREA NITROGEN 16 MG/DL (7-18); CALCIUM LEVEL 8.4 MG/DL (8.8-10.2); CARBON DIOXIDE LEVEL 26 MEQ/L (21-32); CHLORIDE LEVEL 106 MEQ/L (98-107); CREATININE FOR GFR 1.12 MG/DL (0.70-1.30); GLOMERULAR FILTRATION RATE > 60.0 (>42); GLUCOSE, FASTING 224 MG/DL (70-100); POTASSIUM SERUM 4.1 MEQ/L (3.5-5.1); SODIUM LEVEL 139 MEQ/L (136-145)
[2020-01-24 08:00] VITALS: BP 136/81
[2020-01-24] MEDS: FINASTERIDE 5 MG TAB PO SCH (08:30)
[2020-01-24 08:31] VITALS: BP 136/81
[2020-01-24] MEDS: GABAPENTIN 400 MG CAP PO SCH (08:31)
[2020-01-24] MEDS: atenoloL 25 MG TAB PO SCH (08:31)
[2020-01-24] MEDS: lisinopriL 10 MG TAB PO SCH (08:31)
[2020-01-24] MEDS: HumaLOG INSULIN (NovoLOG) PER UNIT SC SCH (08:33)
[2020-01-24] MEDS ORDERED: LEVEMIR (INSULIN DETEMIR) 1 UNITS/0.01ML SC SCH (09:00)
[2020-01-24] MEDS ORDERED: AUGM875T28 PO (09:51)
[2020-01-24] MEDS ORDERED: PROB250C PO (09:51)
--- NOTE | 2020-01-24 16:46 | DS.PDOC ---
Discharge Summary General Date of Admission Jan 20, 2020 at 20:55 Date of Discharge 01/24/20 Discharge Summary HISTORY OF PRESENT ILLNESS: This is a 74-year-old gentleman who came to the hospital earlier on today with complaints having fevers and chills. He also had left first toe and forefoot foot redness and swelling that began yesterday. He denied having any trauma to the foot. He also denied having any foot pain, but admitted to having diabetic neuropathy. He was diagnosed with left foot cellulitis and sent home with Keflex. Despite taking ibuprofen and Tylenol. He continued to have fevers there fore he decided to come back to the hospital where evaluation. He was admitted for further treatment of left foot cellulitis. HOSPITAL COURSE: The patient was started on IV vancomycin for MRSA, MSSA coverage due to him having a prior ulcer on the new medial aspect of the left large toe. His cellu litis continued to improve for several days; however, there appeared to be a small hematoma underneath the left large toe noticed on 01/23/2020. Podiatry was called to assess and did debridement of the left ulcer which has healed and calloused at that point. A wound culture was sent from the debridement of the subcutaneous and deep tissue. He had improved substantially with IV vancomycin by 01/24/2020. His blood sugar was elevated this hospital stay which is not abnormal in a diabetic with an acute infection. He is to resume his normal medications at discharge. I discussed the case with podiatry and, while his wound culture is still pending, the decision was made to discharge with oral Augmentin and close follow-up with podiatry office. WBC has always been normal and the redness, swelling of the left foot is significantly improved. At the time of discharge the patient denied any chest pain, shortness of breath, fevers, chills, nausea, vomiting. REVIEW OF SYSTEMS: Negative except as listed in HPI PAST MEDICAL/ SURGICAL HISTORY: NIDDM with neuropathy Chronic HTN Dyslipidemia Hyperparathyroidism status post partial parathyroidectomy Nephrolithiasis Bilateral rotator cuff surgery Neck surgery to manage cervical spine impingement requiring Morbid obesity. ALIRIO on BiPAP BPH SOCIAL HISTORY: No smoking history. Drinks alcohol socially. Lives at home with his . FAMILY HISTORY: n/a ALLERGIES: Please see below. DISCHARGE MEDICATIONS: please see below. PHYSICAL EXAMINATION: GEN: well-nourished / well developed/ NAD INTEGUMENT: left great toe on the dorsal aspect of his left foot with only mild redness, minimal welling of the toe itself; however, new hematoma under base of large toe on left. clean debrided area over previous lesion, nonsuppurative, no fouls smell, appears healthy on the medial part of left great toe HEENT: NCAT /mucus membranes moist and pink CVS: RRR/NMRG/ radial pulses difficult to palpate LUNGS: lungs are clear to auscultation bilaterally on room air MSK/EXTREMITIES: range of motion intact in all 4 extremities NEURO: CN 2-12 are grossly intact / speech is not dysarthric PSYCH: alert and oriented to person place and time/ able to understand and follow all commands LABORATORY DATA: Please see below IMAGING: No new imaging ASSESSMENT: 74-year-old M admitted for management of left foot cellulitis. PLAN: 1. Left foot cellulitis. much improved on IV vancomycin. Discharging today with PO Augmentin BID x 10 days and probiotic. Pain controlled and is walking well on it from PT stand point no issues. Patient is to follow up with podiatry (Dr. Temple) and PCP after discharge. When he follows up with podiatry, they can review results of wound culture that is currently pending- this was discussed already with Dr. Temple. 2. HTN. Resuming home meds. 3. NIDDM w/ neuropathy. C/w home medications. 4. ALIRIO. Stable. Resume home BiPAP 5. BPH. C/w finasteride 6. Morbid Obesity. BMI 43.8. F/u with PCP. DISPOSITION: Discharged home today in improved condition. Plan is f/u with both podiatry and PCP within next 1-2 weeks. TIME SPENT ON DISCHARGE: Greater than 30 minutes. Vital Signs/I&Os Vital Signs Date Time Temp Pulse Resp B/P (MAP) Pulse Ox O2 Delivery O2 Flow Rate FiO2 01/24/20 08:31 136/81 01/24/20 08:31 62 01/24/20 08:00 97.8 20 96 Room Air I&O- Last 24 Hours up to 6 AM 01/24/20 06:00 Intake Total 1740 ml Balance 1740 ml Laboratory Data Labs 24H Laboratory Tests 2 01/23/20 17:04: Bedside Glucose (Misc Panel) 183H 01/23/20 20:02: Bedside Glucose (Misc Panel) 170H 01/24/20 04:44: Nucleated Red Blood Cells % (auto) 0.0, Anion Gap 7L, Glomerular Filtration Rate > 60.0, Calcium Level 8.4L CBC/BMP Laboratory Tests 01/24/20 04:44 FSBS Laboratory Tests Test 01/23/20 17:04 01/23/20 20:02 Range/Units Bedside Glucose (Misc Panel) 183 170 83-110 MG/DL Microbiology Microbiology 01/23/20 Wound Culture, Received Pending 01/21/20 Blood Culture - Preliminary, Resulted No Growth after 72 hours. All specime... 01/21/20 Blood Culture - Preliminary, Resulted No Growth after 72 hours. All specime... 01/20/20 Blood Culture - Preliminary, Resulted No Growth after 72 hours. All specime... Discharge Medications Scheduled Amoxicillin/Potassium Clav (Augmentin 875-125 Tablet) 1 Each Tablet, 1 TAB PO BID Atenolol (Atenolol) 25 Mg Tablet, 25 MG PO DAILY, (Reported) Cholecalciferol (Vitamin D3) (Vitamin D3) 25 Mcg Tablet, 1,000 UNITS PO DAILY, (Reported) Finasteride (Finasteride) 5 Mg Tablet, 5 MG PO DAILY, (Reported) Gabapentin (Gabapentin) 400 Mg Capsule, 1,600 MG PO BID, (Reported) Latanoprost (Xalatan) 0.005% 2.5ML Drops, 1 DROP OD QPM, (Reported) Lisinopril (Lisinopril) 10 Mg Tablet, 10 MG PO DAILY, (Reported) Meloxicam (Meloxicam) 15 Mg Tablet, 15 MG PO DAILY, (Reported) Metformin HCl (Metformin HCl) 500 Mg Tablet, 500 MG PO DAILY, (Reported) Pantoprazole Sodium (Pantoprazole Sodium) 40 Mg Tablet.dr, 40 MG PO DAILY, (Reported) Pramipexole Di-HCl (Pramipexole Dihydrochloride) 1 Mg Tablet, 1 MG PO QPM, (Reported) Saccharomyces Boulardii (Probiotic) 250 Mg Capsule, 1 CAP PO DAILY Simvastatin (Simvastatin) 20 Mg Tablet, 20 MG PO QPM, (Reported) Scheduled PRN Ibuprofen (Ibuprofen) 200 Mg Capsule, 400 MG PO Q8HP PRN for PAIN, (Reported) Allergies Coded Allergies: Sulfa (Sulfonamide Antibiotics) (Verified Allergy, Intermediate, joints swell and ache, 01/20/20) Linda Ace MD Jan 24, 2020 16:46
== END 2020-01-24 11:50 | disposition home or self-care (01) | DRG 571 ==
LOC: M ED 19:02 → M ED INP 20:55 → ENRESERV 22:29 → M PCU 22:50
PROVIDERS: ADMIT Internal Medicine; ATTEND Internal Medicine
PROC: 0JBR0ZZ Excision of Left Foot Subcutaneous Tissue and Fascia, Open Approach (ICD-10-PCS; principal; 2020-01-23)
DX: L03.116 Cellulitis of left lower limb (principal); Z68.41 Body mass index [BMI] 40.0-44.9, adult; N17.9 Acute kidney failure, unspecified; I95.9 Hypotension, unspecified; E11.40 Type 2 diabetes mellitus with diabetic neuropathy, unspecified; E78.5 Hyperlipidemia, unspecified; I10 Essential (primary) hypertension; E66.01 Morbid (severe) obesity due to excess calories; G47.33 Obstructive sleep apnea (adult) (pediatric); N40.0 Benign prostatic hyperplasia without lower urinary tract symptoms; Z79.899 Other long term (current) drug therapy; Z88.2 Allergy status to sulfonamides; E21.3 Hyperparathyroidism, unspecified; M19.90 Unspecified osteoarthritis, unspecified site

== ENCOUNTER 2022-03-04 07:55 | Emergency (ER) | payer MEDICARE ==
[~2022-03-04] VITALS: Ht 175.3 cm; Wt 120.6 kg
[~2022-03-04 07:55] MED LIST changes: +AUGM875T28 PO; +CEPH500C PO; +GABA-283 PO; +LISI10TA22 PO; -LISI10TA4 PO; +PANT40TA29 PO; -PANT40TA3 PO; +PROB250C PO; +VITA100017 PO
[2022-03-04] MEDS ORDERED: JARD1TAB3 (08:04)
[2022-03-04 09:08] LABS: RSV AMPLIFICATION NEGATIVE (NEGATIVE)
[2022-03-04 11:40] VITALS: BP 119/58
[2022-03-04] MEDS ORDERED: AMOX875T2 PO (12:09)
[2022-03-04] MEDS ORDERED: PRED20TA PO (12:12)
== END 2022-03-04 12:36 | disposition home or self-care (01) ==
LOC: M ED 07:55
DX: J20.9 Acute bronchitis, unspecified (principal); E11.9 Type 2 diabetes mellitus without complications; I10 Essential (primary) hypertension; K21.9 Gastro-esophageal reflux disease without esophagitis; E78.5 Hyperlipidemia, unspecified; N18.9 Chronic kidney disease, unspecified; G47.33 Obstructive sleep apnea (adult) (pediatric); Z79.899 Other long term (current) drug therapy; Z88.2 Allergy status to sulfonamides

== ENCOUNTER → 2024-01-04 | Outpatient (REF) | payer MEDICARE ==
[~2024-01-04] MED LIST changes: +AMOX875T2 PO; -GABA-283 PO; +GABA-284 PO; +JARD1TAB3; +PRED20TA PO
[2024-01-04 16:47] LABS: BASO # 0.1 10^3/uL (0.0-0.2); BASO % 1.1 % (0.0-1.0); EOS # 0.3 10^3/uL (0.0-0.5); EOS % 3.7 % (0.0-3.0); HEMATOCRIT 40.2 % (42.0-52.0); HEMOGLOBIN 12.4 g/dl (13.5-17.5); LYMPH # 1.4 10^3/uL (1.5-5.0); LYMPH % 19.8 % (24.0-44.0); MEAN CORPUSCULAR HEMOGLOBIN 29.2 pg (27.0-33.0); MEAN CORPUSCULAR HGB CONC 30.8 g/dl (32.0-36.5); MEAN CORPUSCULAR VOLUME 94.8 fl (80.0-96.0); MONO # 0.6 10^3/uL (0.0-0.8); MONO % 8.9 % (2.0-8.0); NEUTROPHILS # 4.6 10^3/uL (1.5-8.5); NEUTROPHILS % 66.1 % (36.0-66.0); PLATELET COUNT, AUTOMATED 181 10^3/uL (150-450); RED BLOOD COUNT 4.24 10^6/uL (4.30-6.10)
[2024-01-04 16:52] LABS: ERYTHROCYTE SEDIMENTATION RATE 22 mm/hr (0-20)
[2024-01-04 17:08] LABS: ALBUMIN 3.4 G/DL (3.2-5.2); ALKALINE PHOSPHATASE 91 U/L (46-116); ALT/SGPT 36 U/L (7.0-40); AST/SGOT 35 U/L (<34); BILIRUBIN,TOTAL 0.3 MG/DL (0.3-1.2); BLOOD UREA NITROGEN 14 MG/DL (9-23); CALCIUM LEVEL 8.8 MG/DL (8.3-10.6); CARBON DIOXIDE LEVEL 27 MMOL/L (20-31); CHLORIDE LEVEL 106 MMOL/L (98-107); GLOMERULAR FILTRATION RATE > 60.0 (>42); GLUCOSE, FASTING 121 MG/DL (74-106); POTASSIUM SERUM 4.1 MMOL/L (3.5-5.1); SODIUM LEVEL 141 MMOL/L (136-145); TOTAL PROTEIN 6.7 G/DL (5.7-8.2)
== END ==
LOC: M LAB REF 15:30
DX: T84.59XA Infection and inflammatory reaction due to other internal joint prosthesis, initial encounter (principal)

== ENCOUNTER → 2024-01-08 | Outpatient (REF) | payer MEDICARE ==
[2024-01-08 17:26] LABS: BASO # 0.1 10^3/uL (0.0-0.2); BASO % 1.3 % (0.0-1.0); EOS # 0.2 10^3/uL (0.0-0.5); EOS % 4.2 % (0.0-3.0); HEMATOCRIT 39.6 % (42.0-52.0); HEMOGLOBIN 12.4 g/dl (13.5-17.5); LYMPH # 1.3 10^3/uL (1.5-5.0); MEAN CORPUSCULAR HEMOGLOBIN 29.2 pg (27.0-33.0); MEAN CORPUSCULAR HGB CONC 31.3 g/dl (32.0-36.5); MEAN CORPUSCULAR VOLUME 93.4 fl (80.0-96.0); MONO # 0.5 10^3/uL (0.0-0.8); MONO % 8.6 % (2.0-8.0); NEUTROPHILS # 3.2 10^3/uL (1.5-8.5); NEUTROPHILS % 60.3 % (36.0-66.0); PLATELET COUNT, AUTOMATED 185 10^3/uL (150-450); RED BLOOD COUNT 4.24 10^6/uL (4.30-6.10); WHITE BLOOD COUNT 5.3 10^3/uL (4.0-10.0)
[2024-01-08 17:40] LABS: ERYTHROCYTE SEDIMENTATION RATE 20 mm/hr (0-20)
[2024-01-08 17:45] LABS: ALBUMIN 3.4 G/DL (3.2-5.2); ALKALINE PHOSPHATASE 97 U/L (46-116); ALT/SGPT 36 U/L (7.0-40); AST/SGOT 37 U/L (<34); BILIRUBIN,TOTAL 0.3 MG/DL (0.3-1.2); BLOOD UREA NITROGEN 13 MG/DL (9-23); CARBON DIOXIDE LEVEL 28 MMOL/L (20-31); CHLORIDE LEVEL 107 MMOL/L (98-107); CREATININE FOR GFR 0.94 MG/DL (0.70-1.30); GLOMERULAR FILTRATION RATE > 60.0 (>42); GLUCOSE, FASTING 155 MG/DL (74-106); POTASSIUM SERUM 3.9 MMOL/L (3.5-5.1); SODIUM LEVEL 140 MMOL/L (136-145); TOTAL PROTEIN 6.5 G/DL (5.7-8.2)
== END ==
LOC: M LAB REF 16:47
PROVIDERS: ATTEND Internal Medicine Infectious Disease
DX: T84.59XA Infection and inflammatory reaction due to other internal joint prosthesis, initial encounter (principal); Y83.1 Surgical operation with implant of artificial internal device as the cause of abnormal reaction of the patient, or of later complication, without mention of misadventure at the time of the procedure

== ENCOUNTER → 2024-01-17 | Outpatient (REF) | payer MEDICARE ==
[2024-01-17 19:05] LABS: BASO # 0.1 10^3/uL (0.0-0.2); BASO % 1.2 % (0.0-1.0); EOS # 0.2 10^3/uL (0.0-0.5); EOS % 3.8 % (0.0-3.0); HEMATOCRIT 39.7 % (42.0-52.0); HEMOGLOBIN 12.6 g/dl (13.5-17.5); LYMPH # 1.8 10^3/uL (1.5-5.0); LYMPH % 29.4 % (24.0-44.0); MEAN CORPUSCULAR HEMOGLOBIN 29.2 pg (27.0-33.0); MEAN CORPUSCULAR HGB CONC 31.7 g/dl (32.0-36.5); MEAN CORPUSCULAR VOLUME 91.9 fl (80.0-96.0); MONO # 0.6 10^3/uL (0.0-0.8); MONO % 9.8 % (2.0-8.0); NEUTROPHILS # 3.3 10^3/uL (1.5-8.5); NEUTROPHILS % 55.3 % (36.0-66.0); PLATELET COUNT, AUTOMATED 198 10^3/uL (150-450); RED BLOOD COUNT 4.32 10^6/uL (4.30-6.10)
[2024-01-17 19:26] LABS: ERYTHROCYTE SEDIMENTATION RATE 16 mm/hr (0-20)
[2024-01-17 19:34] LABS: BLOOD UREA NITROGEN 21 MG/DL (9-23); CARBON DIOXIDE LEVEL 26 MMOL/L (20-31); CHLORIDE LEVEL 105 MMOL/L (98-107); CREATININE FOR GFR 1.02 MG/DL (0.70-1.30); GLOMERULAR FILTRATION RATE > 60.0 (>42); GLUCOSE, FASTING 83 MG/DL (74-106); POTASSIUM SERUM 3.9 MMOL/L (3.5-5.1); SODIUM LEVEL 141 MMOL/L (136-145)
== END ==
LOC: M LAB REF 17:12
PROVIDERS: ATTEND Internal Medicine Infectious Disease
DX: T84.59XA Infection and inflammatory reaction due to other internal joint prosthesis, initial encounter (principal)

== ENCOUNTER → 2024-01-22 | Outpatient (REF) | payer MEDICARE ==
[2024-01-22 13:19] LABS: BASO % 0.8 % (0.0-1.0); EOS # 0.2 10^3/uL (0.0-0.5); EOS % 3.7 % (0.0-3.0); HEMATOCRIT 40.5 % (42.0-52.0); HEMOGLOBIN 12.6 g/dl (13.5-17.5); LYMPH # 1.3 10^3/uL (1.5-5.0); LYMPH % 26.7 % (24.0-44.0); MEAN CORPUSCULAR HGB CONC 31.1 g/dl (32.0-36.5); MEAN CORPUSCULAR VOLUME 93.3 fl (80.0-96.0); MONO # 0.4 10^3/uL (0.0-0.8); MONO % 8.6 % (2.0-8.0); NEUTROPHILS # 2.9 10^3/uL (1.5-8.5); NEUTROPHILS % 59.8 % (36.0-66.0); PLATELET COUNT, AUTOMATED 174 10^3/uL (150-450); RED BLOOD COUNT 4.34 10^6/uL (4.30-6.10); WHITE BLOOD COUNT 4.9 10^3/uL (4.0-10.0)
[2024-01-22 13:30] LABS: ERYTHROCYTE SEDIMENTATION RATE 13 mm/hr (0-20)
[2024-01-22 13:50] LABS: BLOOD UREA NITROGEN 14 MG/DL (9-23); CALCIUM LEVEL 8.7 MG/DL (8.3-10.6); CARBON DIOXIDE LEVEL 28 MMOL/L (20-31); CHLORIDE LEVEL 109 MMOL/L (98-107); CREATININE FOR GFR 0.96 MG/DL (0.70-1.30); GLOMERULAR FILTRATION RATE > 60.0 (>42); GLUCOSE, FASTING 186 MG/DL (74-106); POTASSIUM SERUM 3.8 MMOL/L (3.5-5.1); SODIUM LEVEL 145 MMOL/L (136-145)
== END ==
LOC: M LAB REF 12:23
PROVIDERS: ATTEND Internal Medicine Infectious Disease
DX: T84.59XA Infection and inflammatory reaction due to other internal joint prosthesis, initial encounter (principal)

== ENCOUNTER → 2024-01-29 | Outpatient (REF) | payer MEDICARE ==
[2024-01-29 19:00] LABS: BASO % 0.8 % (0.0-1.0); EOS # 0.2 10^3/uL (0.0-0.5); EOS % 3.2 % (0.0-3.0); HEMOGLOBIN 12.2 g/dl (13.5-17.5); LYMPH # 1.4 10^3/uL (1.5-5.0); LYMPH % 25.4 % (24.0-44.0); MEAN CORPUSCULAR HGB CONC 30.5 g/dl (32.0-36.5); MEAN CORPUSCULAR VOLUME 91.7 fl (80.0-96.0); MONO # 0.5 10^3/uL (0.0-0.8); MONO % 8.9 % (2.0-8.0); NEUTROPHILS # 3.3 10^3/uL (1.5-8.5); NEUTROPHILS % 61.3 % (36.0-66.0); PLATELET COUNT, AUTOMATED 180 10^3/uL (150-450); RED BLOOD COUNT 4.36 10^6/uL (4.30-6.10); WHITE BLOOD COUNT 5.3 10^3/uL (4.0-10.0)
[2024-01-29 19:10] LABS: ERYTHROCYTE SEDIMENTATION RATE 12 mm/hr (0-20)
[2024-01-29 19:25] LABS: BLOOD UREA NITROGEN 20 MG/DL (9-23); CALCIUM LEVEL 8.6 MG/DL (8.3-10.6); CARBON DIOXIDE LEVEL 27 MMOL/L (20-31); CHLORIDE LEVEL 106 MMOL/L (98-107); CREATININE FOR GFR 0.98 MG/DL (0.70-1.30); GLOMERULAR FILTRATION RATE > 60.0 (>42); GLUCOSE, FASTING 138 MG/DL (74-106); POTASSIUM SERUM 3.9 MMOL/L (3.5-5.1); SODIUM LEVEL 140 MMOL/L (136-145)
== END ==
LOC: M LAB REF 18:40
PROVIDERS: ATTEND Internal Medicine Infectious Disease
DX: T84.59XA Infection and inflammatory reaction due to other internal joint prosthesis, initial encounter (principal); Y83.1 Surgical operation with implant of artificial internal device as the cause of abnormal reaction of the patient, or of later complication, without mention of misadventure at the time of the procedure

== ENCOUNTER → 2024-03-06 | Outpatient (REF) | payer MEDICARE | LOC: M LABDRAWC 18:05 | PROVIDERS: ATTEND Orthopaedic Surgery | DX: M19.011 Primary osteoarthritis, right shoulder (principal) ==

== ENCOUNTER → 2024-03-06 | Outpatient (REF) | payer MEDICARE ==
[2024-03-06 18:26] LABS: BASO # 0.1 10^3/uL (0.0-0.2); BASO % 1.2 % (0.0-1.0); EOS # 0.1 10^3/uL (0.0-0.5); EOS % 2.4 % (0.0-3.0); HEMATOCRIT 40.7 % (42.0-52.0); HEMOGLOBIN 12.5 g/dl (13.5-17.5); LYMPH # 1.7 10^3/uL (1.5-5.0); LYMPH % 28.4 % (24.0-44.0); MEAN CORPUSCULAR HEMOGLOBIN 26.5 pg (27.0-33.0); MEAN CORPUSCULAR HGB CONC 30.7 g/dl (32.0-36.5); MEAN CORPUSCULAR VOLUME 86.2 fl (80.0-96.0); MONO # 0.7 10^3/uL (0.0-0.8); MONO % 11.9 % (2.0-8.0); NEUTROPHILS # 3.2 10^3/uL (1.5-8.5); NEUTROPHILS % 55.6 % (36.0-66.0); PLATELET COUNT, AUTOMATED 192 10^3/uL (150-450); RED BLOOD COUNT 4.72 10^6/uL (4.30-6.10); WHITE BLOOD COUNT 5.8 10^3/uL (4.0-10.0)
[2024-03-06 18:28] LABS: ALBUMIN 3.7 G/DL (3.2-5.2); ALKALINE PHOSPHATASE 93 U/L (46-116); ALT/SGPT 38 U/L (7.0-40); AST/SGOT 35 U/L (<34); BILIRUBIN,TOTAL 0.5 MG/DL (0.3-1.2); BLOOD UREA NITROGEN 21 MG/DL (9-23); CALCIUM LEVEL 8.9 MG/DL (8.3-10.6); CARBON DIOXIDE LEVEL 28 MMOL/L (20-31); CHLORIDE LEVEL 103 MMOL/L (98-107); CREATININE FOR GFR 1.21 MG/DL (0.70-1.30); GLOMERULAR FILTRATION RATE > 60.0 (>42); GLUCOSE, FASTING 121 MG/DL (74-106); SODIUM LEVEL 138 MMOL/L (136-145); TOTAL PROTEIN 6.7 G/DL (5.7-8.2)
[2024-03-06 18:30] LABS: THYROID STIMULATING HORMONE 0.727 uIU/ML (0.55-4.78)
[2024-03-06 18:31] LABS: FREE T4 1.06 NG/DL (0.89-1.76)
== END ==
LOC: M LABDRAWC 18:02
PROVIDERS: ATTEND Physician Assistant Medical
DX: R60.0 Localized edema (principal); M19.011 Primary osteoarthritis, right shoulder

== ENCOUNTER → 2024-03-12 | Outpatient (CLI) | payer MEDICARE | LOC: M CLY 14:21 | PROVIDERS: ATTEND Orthopaedic Surgery | DX: M19.011 Primary osteoarthritis, right shoulder (principal); Z96.611 Presence of right artificial shoulder joint ==

== ENCOUNTER 2024-03-19 11:24 | Emergency (ER) | payer MEDICARE ==
[~2024-03-19] VITALS: Ht 175.3 cm; Wt 135.2 kg
[2024-03-19 14:19] LABS: BASO # 0.1 10^3/uL (0.0-0.2); BASO % 0.9 % (0.0-1.0); EOS # 0.1 10^3/uL (0.0-0.5); EOS % 2.5 % (0.0-3.0); HEMATOCRIT 41.6 % (42.0-52.0); HEMOGLOBIN 12.6 g/dl (13.5-17.5); LYMPH # 1.3 10^3/uL (1.5-5.0); LYMPH % 22.7 % (24.0-44.0); MEAN CORPUSCULAR HEMOGLOBIN 25.9 pg (27.0-33.0); MEAN CORPUSCULAR HGB CONC 30.3 g/dl (32.0-36.5); MEAN CORPUSCULAR VOLUME 85.6 fl (80.0-96.0); MONO # 0.6 10^3/uL (0.0-0.8); MONO % 10.5 % (2.0-8.0); NEUTROPHILS # 3.5 10^3/uL (1.5-8.5); NEUTROPHILS % 62.9 % (36.0-66.0); PLATELET COUNT, AUTOMATED 170 10^3/uL (150-450); RED BLOOD COUNT 4.86 10^6/uL (4.30-6.10); WHITE BLOOD COUNT 5.6 10^3/uL (4.0-10.0)
[2024-03-19 14:24] LABS: ERYTHROCYTE SEDIMENTATION RATE 29 mm/hr (0-20)
[2024-03-19 14:35] LABS: D-DIMER QUANT 1.65 ug/mL (<0.5); INR 1.05; PROTHROMBIN TIME 13.4 SECONDS (12.5-14.5)
[2024-03-19 14:40] LABS: CK-MB VALUE MASS 2.6 NG/ML (<3.6)
[2024-03-19 14:41] LABS: C REACTIVE PROTEIN QUANTITATIV 2.3 MG/DL (<1.0)
[2024-03-19 14:42] LABS: ALBUMIN 3.6 G/DL (3.2-5.2); BILIRUBIN,DIRECT 0.2 MG/DL (<0.4); BILIRUBIN,TOTAL 0.7 MG/DL (0.3-1.2); MB/CK RELATIVE INDEX 2.32 (< OR =4)
[2024-03-19] MEDS: PERCOCET 5MG/325MG TAB PO ONE (16:29)
[2024-03-19] MEDS ORDERED: BACL10TA2 PO (16:31)
[2024-03-19] MEDS ORDERED: PERC5TAB12 PO (16:31)
[2024-03-19] MEDS ORDERED: LASI40TA9 PO (16:34)
[2024-03-19 17:08] VITALS: BP 149/76; TEMP 98; O2SAT 96
== END 2024-03-19 17:19 | disposition home or self-care (01) ==
LOC: M ED 11:24
DX: S20.219A Contusion of unspecified front wall of thorax, initial encounter (principal); S05.12XA Contusion of eyeball and orbital tissues, left eye, initial encounter; S50.02XA Contusion of left elbow, initial encounter; W01.10XA Fall on same level from slipping, tripping and stumbling with subsequent striking against unspecified object, initial encounter; Y92.830 Public park as the place of occurrence of the external cause; Y93.9 Activity, unspecified; Y99.9 Unspecified external cause status; R22.43 Localized swelling, mass and lump, lower limb, bilateral; M19.012 Primary osteoarthritis, left shoulder; E11.9 Type 2 diabetes mellitus without complications; I12.9 Hypertensive chronic kidney disease with stage 1 through stage 4 chronic kidney disease, or unspecified chronic kidney disease; E78.5 Hyperlipidemia, unspecified; K21.9 Gastro-esophageal reflux disease without esophagitis; E66.01 Morbid (severe) obesity due to excess calories; N40.0 Benign prostatic hyperplasia without lower urinary tract symptoms; G47.00 Insomnia, unspecified; G25.81 Restless legs syndrome; M54.9 Dorsalgia, unspecified; Z79.899 Other long term (current) drug therapy; Z88.2 Allergy status to sulfonamides

== ENCOUNTER → 2025-04-03 | Outpatient (REF) | payer MEDICARE ==
[~2025-04-03] MED LIST changes: +BACL10TA2 PO; +LASI40TA9 PO; +PERC5TAB12 PO
[2025-04-03 18:09] LABS: BASO # 0.1 10^3/uL (0.0-0.2); BASO % 1.0 % (0.0-1.0); EOS # 0.2 10^3/uL (0.0-0.5); EOS % 2.5 % (0.0-3.0); LYMPH # 1.9 10^3/uL (1.5-5.0); LYMPH % 28.2 % (24.0-44.0); MONO # 0.6 10^3/uL (0.0-0.8); MONO % 9.3 % (2.0-8.0); NEUTROPHILS # 3.9 10^3/uL (1.5-8.5); NEUTROPHILS % 58.6 % (36.0-66.0); PLATELET COUNT, AUTOMATED 142 10^3/uL (150-450)
[2025-04-03 18:33] LABS: ALT/SGPT 34.0 U/L (7.0-40); AST/SGOT 47.0 U/L (<34); CALCIUM LEVEL 9.5 MG/DL (8.3-10.6); CARBON DIOXIDE LEVEL 31.0 MMOL/L (20-31); CHLORIDE LEVEL 103.0 MMOL/L (98-107); CREATININE FOR GFR 1.28 MG/DL (0.70-1.30); GLOMERULAR FILTRATION RATE 57.3 (>42); POTASSIUM SERUM 4.6 MMOL/L (3.5-5.1); PSA SCREENING 0.26 NG/ML (< 4.00); SODIUM LEVEL 142.0 MMOL/L (136-145)
[2025-04-03 18:35] LABS: FREE T4 1.11 NG/DL (0.89-1.76)
[2025-04-03 19:26] LABS: ESTIMATED AVERAGE GLUCOSE 111.0 MG/DL (60-110)
== END ==
LOC: M LABDRAWC 17:21
PROVIDERS: ATTEND Physician Assistant Medical
DX: E11.29 Type 2 diabetes mellitus with other diabetic kidney complication (principal); R80.9 Proteinuria, unspecified; Z12.5 Encounter for screening for malignant neoplasm of prostate
CPT/HCPCS: 80053; 83036; 84439; 84443; 85025; G0103